=== PATIENT | female | born 2000 | race Caucasian/White ===

== ENCOUNTER 2020-02-26 09:05 | Emergency (ER) | payer BC, OTHER | END 2020-02-26 10:01 | disposition home or self-care (01) | LOC: ERS 09:05 | DX: J02.9 Acute pharyngitis, unspecified (principal); R09.81 Nasal congestion; Z20.828 Contact with and (suspected) exposure to other viral communicable diseases | CPT/HCPCS: 87635; 99283; U0003 ==